=== PATIENT | female | born 1990 | race Two or more races ===

== ENCOUNTER 2025-02-24 17:28 | Emergency (ER) | payer OTHER ==
[~2025-02-24] VITALS: Ht 162.6 cm; Wt 68.0 kg
[2025-02-24 17:41] VITALS: TEMP 97.8
[2025-02-24] MEDS ORDERED: ACETAMINOPHEN ES 500 MG TABLET ONE (18:22)
[2025-02-24] MEDS: ACETAMINOPHEN ES 500 MG TABLET PO ONE (18:25)
[2025-02-24 18:31] LABS: PLATELET COUNT (AUTO) 284 K/uL (150-450); RED BLOOD CELL COUNT(AUTO) 4.75 MIL/uL (4.0-5.2); RED CELL DISTRIBUTION WIDTH 15.5 % (11.5-15.0); WHITE BLOOD COUNT (AUTO) 8.9 K/uL (4.3-11.0)
[2025-02-24 18:39] LABS: CALCIUM, SERUM 8.9 mg/dL (8.5-10.1); CREATININE 0.6 mg/dL (0.6-1.3); SODIUM SERUM 142 mmol/L (136-145); UREA NITROGEN, BLOOD 8 mg/dL (7-18)
[2025-02-24 18:54] LABS: PREGNANCY TEST URINE QUAL NEGATIVE (NEGATIVE)
[2025-02-24 19:01] LABS: INR 1.0 (0.91-1.10)
[2025-02-24] MEDS ORDERED: ACET-2030 PO (19:42)
[2025-02-24] MEDS ORDERED: IBUP-1955 PO (19:42)
[2025-02-24 20:02] VITALS: BP 116/77; O2SAT 98
== END 2025-02-24 20:02 | disposition home or self-care (01) ==
LOC: ER 18:18
DX: M94.0 Chondrocostal junction syndrome [Tietze] (principal)
CPT/HCPCS: 36415; 71045-TC; 80048-TC; 84484-TC; 84703-TC; 85025-TC; 85730-TC